=== PATIENT | male | born 1975 | race Caucasian/White ===

== ENCOUNTER 2018-11-02 12:13 | Emergency (ER) | payer MEDICAID ==
[~2018-11-02] VITALS: Ht 152.4 cm; Wt 57.2 kg
[2018-11-02 12:15] VITALS: BP 106/68
--- NOTE | 2018-11-02 12:23 | NUR ---
PT TRIAGED AND SENT TO ER [facility].
--- NOTE | 2018-11-02 12:34 | NUR ---
PT TAKEN TO XRAY
--- NOTE | 2018-11-02 13:21 | NUR ---
PT TO ER BED 3
--- NOTE | 2018-11-02 13:36 | NUR ---
PATIENT PRESENTS TO ED WITH COUGH, FEVER, FATIGUE, LOSS OF APPETITE X 2 DAYS . DENIES N/V/D; SKIN IS PINK/WARM/DRY; AAOX4 WITH EVEN AND STEADY GAIT; LUNGS CLEAR BL; HR EVEN AND REGULAR;; PATIENT STATES PAIN OF 9/10 AT THIS TIME; VSS; PATIENT POSITIONED FOR COMFORT; HOB ELEVATED; BEDRAILS UP X2; BED DOWN. ER MD MADE AWARE OF PT STATUS.
--- NOTE | 2018-11-02 14:21 | NUR ---
laying supine with hand behind head and feet crossed. no grimace no moan no coughing noted at this time. continues to wait for dispo
[2018-11-02 17:05] VITALS: BP 120/65
--- NOTE | 2018-11-02 17:05 | NUR ---
Patient discharged with v/s stable. Written and verbal after care instructions given and explained. Patient alert, oriented and verbalized understanding of instructions. Ambulatory with steady gait. All questions addressed prior to discharge. ID band removed. Patient advised to follow up with PMD. Rx of Tamiflu 75mg, Dimetapp Children's DM Cold and Cough Syrup 15 ml, and Tylenol 500mg given. Patient educated on indication of medication including possible reaction and side effects. Opportunity to ask questions provided and answered.
== END 2018-11-02 17:05 | disposition home or self-care (01) ==
LOC: MED 12:13
DX: J11.1 Influenza due to unidentified influenza virus with other respiratory manifestations (principal); E11.9 Type 2 diabetes mellitus without complications; Z79.84 Long term (current) use of oral hypoglycemic drugs; Z79.899 Other long term (current) drug therapy
CPT/HCPCS: 36415; 71046; 87804; 99284

== ENCOUNTER 2018-11-27 22:53 | Emergency (ER) | payer MEDICAID ==
[~2018-11-27] VITALS: Ht 154.9 cm; Wt 54.4 kg
[2018-11-27 23:00] VITALS: BP 135/84
--- NOTE | 2018-11-27 23:05 | NUR ---
Pt bib family for evaluation of headache that started today. Pt reports he has been drinking x1 week. Pt reports drinking beer and stated today "I felt like my head is going to explode." Patient denies any visual changes. PERRL from 5mm to 3mm, brisk. Patient AOX4, burmese speaking, speech is clear but delayed to respond. Skin appears flushed, warm to touch. VSS. Pt placed on lead welder, pulse oximetry and blood pressure monitoring. Family at bedside. Waiting for ERMD to evaluate.
[2018-11-27] MEDS ORDERED: KETOROLAC 30 MG/ML VIAL IVP ONE (23:45)
[2018-11-27] MEDS ORDERED: ONDANSETRON 4 MG/2 ML VIAL IVP ONE (23:45)
[2018-11-27] MEDS ORDERED: NACL 0.9% 1,000 ML IV ONE (23:45)
[2018-11-27 23:59] LABS: BASOPHILS % (AUTO) 0.2 % (0.0-2.0); EOSINOPHILS % (AUTO) 0.6 % (0.0-4.0); HEMATOCRIT 46.3 % (36-52); HEMOGLOBIN 15.7 g/dL (12.0-18.0); LYMPHOCYTES # (AUTO) 1.7 K/uL (2.0-11.5); LYMPHOCYTES % (AUTO) 39.8 % (20.5-51.1); MEAN CORPUSCULAR HEMOGLOBIN 30 pg (27-31); MEAN CORPUSCULAR HGB CONC 34 g/dL (33-37); MEAN CORPUSCULAR VOLUME 89.6 fL (80-94); MONOCYTES # (AUTO) 0.3 K/uL (0.8-1.0); MONOCYTES % (AUTO) 6.4 % (1.7-9.3); NEUTROPHILS # (AUTO) 2.3 K/uL (1.8-7.7); PLATELET COUNT (AUTO) 157 K/uL (140-450); RED BLOOD CELL COUNT(AUTO) 5.17 MIL/uL (4.20-6.10); RED CELL DISTRIBUTION WIDTH 14.2 % (11.6-13.7); WHITE BLOOD COUNT (AUTO) 4.4 K/uL (4.8-10.8)
[2018-11-28 00:09] LABS: ANION GAP 17.1 (8-16); CARBON DIOXIDE 27.5 mmol/L (21-32); CREATININE 0.7 mg/dL (0.7-1.3); POTASSIUM 4.6 mmol/L (3.5-5.1)
[2018-11-28 00:14] LABS: TOTAL BILIRUBIN 0.7 mg/dL (0.0-1.0)
[2018-11-28] MEDS ORDERED: INSULIN REGULAR, HUMAN 100 UNIT/ML VIAL SUBQ ONE (00:15)
[2018-11-28 00:43] LABS: APPEARANCE,URINE CLEAR (CLEAR); BILIRUBIN,URINE NEGATIVE (NEGATIVE); BLOOD, URINE TRACE-L (NEGATIVE); COLOR,URINE YELLOW (YELLOW); LEUKOCYTE ESTERASE ,URINE NEGATIVE (NEGATIVE); NITRITE, URINE NEGATIVE (NEGATIVE); UGLUCOSE 3+ (NEGATIVE)
[2018-11-28 01:08] LABS: RBC,URINE 0-5 /HPF (0-5); WBC,URINE 0-5 /HPF (0-5)
[2018-11-28 01:09] VITALS: BP 116/78
--- NOTE | 2018-11-28 01:10 | NUR ---
PT AMBULATORY WITH STEADY GAIT, BLOOD GLUCOSE 253, VSS, DENIES ANY PAIN AT THIS TIME. ER MD MADE AWARE, OK FOR DISCHARGE.
--- NOTE | 2018-11-28 01:10 | NUR ---
Patient discharged with v/s stable. Written and verbal after care instructions given and explained. Patient verbalized understanding. Ambulatory with steady gait. All questions addressed prior to discharge. Advised to follow up with PMD.
== END 2018-11-28 01:09 | disposition home or self-care (01) ==
LOC: MED 22:53
DX: F10.129 Alcohol abuse with intoxication, unspecified (principal); E11.65 Type 2 diabetes mellitus with hyperglycemia; R74.0 Nonspecific elevation of levels of transaminase and lactic acid dehydrogenase [LDH]
CPT/HCPCS: 36415; 80053; 81001; 82948; 85025; 96361; 96372; 96374; 96375; 99283; J1815; J1885; J2405; J7030

== ENCOUNTER 2020-11-26 08:33 | Emergency (ER) | payer MEDICAID, OTHER ==
[~2020-11-26] VITALS: Ht 152.4 cm; Wt 54.4 kg
--- NOTE | 2020-11-26 08:39 | NUR ---
Patient ambulated to room 09 with a steady gait.
[2020-11-26 08:44] VITALS: BP 141/70
[2020-11-26] MEDS ORDERED: ONDANSETRON 4 MG ODT PO ONE (09:00)
[2020-11-26] MEDS ORDERED: HYDROcodone/APAP 5/325 MG 1 TAB TAB PO ONE (09:00)
--- NOTE | 2020-11-26 09:55 | NUR ---
NADR, patient reports decreased nausea.
[2020-11-26] MEDS ORDERED: IBUP-2213 PO (10:21)
[2020-11-26] MEDS ORDERED: ACET-8386 PO (10:21)
--- NOTE | 2020-11-26 10:26 | NUR ---
Dr. Davidson at bedside for re evaluation and results review.
[2020-11-26 10:33] VITALS: BP 141/70
--- NOTE | 2020-11-26 10:34 | NUR ---
Patient discharged with v/s stable. Written and verbal after care instructions given and explained. Patient alert, oriented and verbalized understanding of instructions. Ambulatory with steady gait. All questions addressed prior to discharge. ID band removed. Patient advised to follow up with PMD. Rx of ibuprofen, hydrocodone/acetaminophen given. Patient educated on indication of medication including possible reaction and side effects. Opportunity to ask questions provided and answered.
== END 2020-11-26 11:56 | disposition home or self-care (01) ==
LOC: MED 08:33
DX: S16.1XXA Strain of muscle, fascia and tendon at neck level, initial encounter (principal); S40.012A Contusion of left shoulder, initial encounter; E11.9 Type 2 diabetes mellitus without complications; Z79.899 Other long term (current) drug therapy; V03.99XA Pedestrian with other conveyance injured in collision with car, pick-up truck or van, unspecified whether traffic or nontraffic accident, initial encounter; Y93.89 Activity, other specified; Y92.89 Other specified places as the place of occurrence of the external cause; Y99.8 Other external cause status
CPT/HCPCS: 72040; 73030; 99284; Q0162

== ENCOUNTER 2022-07-20 18:30 | Emergency (ER) | payer OTHER ==
[~2022-07-20] VITALS: Ht 153.4 cm; Wt 52.3 kg
[~2022-07-20 18:30] MED LIST: ACET-8386 PO; IBUP-2213 PO
[2022-07-20 19:12] VITALS: BP 129/85
[2022-07-20] MEDS ORDERED: ONDANSETRON 4 MG ODT PO ONE (20:05)
[2022-07-20] MEDS ORDERED: NACL 0.9% 1,000 ML IV ONE (20:05)
[2022-07-20 20:49] LABS: BASOPHILS % (AUTO) 0.3 % (0.0-2.0); EOSINOPHILS % (AUTO) 0.5 % (0.0-4.0); HEMATOCRIT 46.4 % (36-52); LYMPHOCYTES # (AUTO) 2.6 K/uL (2.0-11.5); LYMPHOCYTES % (AUTO) 29.4 % (20.5-51.1); MEAN CORPUSCULAR HEMOGLOBIN 31 pg (27-31); MEAN CORPUSCULAR HGB CONC 35 g/dL (33-37); MONOCYTES # (AUTO) 0.5 K/uL (0.8-1.0); MONOCYTES % (AUTO) 5.7 % (1.7-9.3); NEUTROPHILS # (AUTO) 5.8 K/uL (1.8-7.7); NEUTROPHILS % (AUTO) 64.1 % (42.2-75.2); PLATELET COUNT (AUTO) 230 K/uL (140-450); RED BLOOD CELL COUNT(AUTO) 5.22 MIL/uL (4.20-6.10); RED CELL DISTRIBUTION WIDTH 14.4 % (11.6-13.7)
--- NOTE | 2022-07-20 20:54 | NUR ---
Titus valle in [facility] - 07/20/22 at 2059 by ANDRZEJ CALLED FOR KATHIA, NO ANSWER.
[2022-07-20 21:43] LABS: ALBUMIN 3.9 g/dL (3.4-5.0); ANION GAP 14.1 (8-16); CARBON DIOXIDE 27.7 mmol/L (21-32); CREATININE 0.8 mg/dL (0.6-1.3); POTASSIUM 3.8 mmol/L (3.5-5.1); TOTAL BILIRUBIN 1.1 mg/dL (0.0-1.0)
[2022-07-20] MEDS ORDERED: KETOROLAC 15 MG/ML VIAL IM ONE (22:40)
[2022-07-20] MEDS ORDERED: IBUP-2213 PO (22:42)
[2022-07-20] MEDS ORDERED: LID5T TP (22:42)
--- NOTE | 2022-07-20 23:30 | NUR ---
PATIENT PLACED IN BED 11. IVF INITIATED. PATIENT MEDICATED PER ORDERS. TOLERATED WELL. ALL NEEDS MET AT THIS TIME.
[2022-07-20 23:43] LABS: APPEARANCE,URINE CLEAR (CLEAR); BILIRUBIN,URINE NEGATIVE (NEGATIVE); BLOOD, URINE NEGATIVE (NEGATIVE); COLOR,URINE YELLOW (YELLOW); LEUKOCYTE ESTERASE ,URINE NEGATIVE (NEGATIVE); NITRITE, URINE NEGATIVE (NEGATIVE); UGLUCOSE 3+ (NEGATIVE)
[2022-07-20] MEDS ORDERED: ONDANSETRON 4 MG ODT ONE (23:52)
[2022-07-21 00:50] VITALS: BP 127/80
--- NOTE | 2022-07-21 00:50 | NUR ---
Patient discharged with v/s stable. Written and verbal after care instructions given and explained. Patient alert, oriented and verbalized understanding of instructions. Ambulatory with steady gait. All questions addressed prior to discharge. ID band removed. Patient advised to follow up with PMD. Rx of LIDOCAINE, IBUPROFEN given. Patient educated on indication of medication including possible reaction and side effects. Opportunity to ask questions provided and answered.
== END 2022-07-21 00:50 | disposition home or self-care (01) ==
LOC: MED 18:30
DX: E11.65 Type 2 diabetes mellitus with hyperglycemia (principal); Z79.4 Long term (current) use of insulin; Z79.899 Other long term (current) drug therapy
CPT/HCPCS: 36415; 71101; 73502; 80053; 81003; 83690; 85025; 93005; 96360; 96372; 99285; J1885; J7030; Q0162; 96361